=== PATIENT | female | born 1955 | race African-American/Black ===

== ENCOUNTER 2024-09-19 09:23 | Inpatient (IN) | payer MEDICARE, OTHER ==
[~2024-09-19] VITALS: Ht 160 cm; Wt 104.4 kg
[2024-09-19 08:53] VITALS: PULSE 74; RESP 19; RESP 20; O2SAT 98
[~2024-09-19 09:23] MED LIST: BUSP10TA23 PO; CARI-493 PO; GABA-1181 PO; INSLAN SQ; IPRA4AER IH; LORA1TAB25 PO; PERCT PO; RANO500T27 PO; ROSU10TA72 PO; TRAZ-257 PO; ZOLP-280 PO; docusate sodium PO; lasix PO; metformin PO
[2024-09-19 11:06] LABS: BASOPHILS % (AUTO) 0.6 % (0.0-2.0); EOSINOPHILS % (AUTO) 2.9 % (1.0-6.0); HEMATOCRIT 43.9 % (36-46); HEMOGLOBIN 13.9 g/dL (12.0-16.0); LYMPHOCYTES # (AUTO) 1.4 K/uL (1.0-4.8); MEAN CORPUSCULAR HEMOGLOBIN 27.6 pg (26.0-34.0); MEAN CORPUSCULAR HGB CONC 31.7 G/dL (31.0-37.0); MEAN CORPUSCULAR VOLUME 87 fL (80-100); MONOCYTES # (AUTO) 2.1 K/uL (0.1-1.0); MONOCYTES % (AUTO) 13.4 % (2.0-9.0); NEUTROPHILS # (AUTO) 11.8 K/uL (1.8-7.7); NEUTROPHILS % (AUTO) 74.1 % (40.0-70.0); PLATELET COUNT (AUTO) 318 K/uL (150-450); RED BLOOD CELL COUNT(AUTO) 5.05 MIL/uL (4.00-5.20); RED CELL DISTRIBUTION WIDTH 13.4 % (11.5-14.5); WHITE BLOOD COUNT (AUTO) 15.9 K/uL (4.5-11.0)
[2024-09-19 11:12] LABS: ANION GAP 0 mmol/L (8-16); CALCIUM, TOTAL 8.6 mg/dL (8.8-10.5); CARBON DIOXIDE 39 mmol/L (22-29); CHLORIDE 99 mmol/L (98-107); CREATININE 0.53 mg/dL (0.60-1.30); GLOMERULAR FILTR. RATE CALC > 60 mL/min (>60); GLUCOSE,RANDOM 88 mg/dL (70-110); POTASSIUM 4.3 mmol/L (3.5-5.1); SODIUM SERUM 138 mmol/L (136-145); UREA NITROGEN, BLOOD 15 mg/dL (7-18)
[2024-09-19 11:17] LABS: PROTHROMBIN TIME 13.5 SEC (9.4-11.6)
[2024-09-19 11:21] LABS: CREATINE KINASE, TOTAL ONLY 210 U/L (26-192)
[2024-09-19 11:22] LABS: TROPONIN I-HIGH SENSITIVITY 211 ng/L (<51)
[2024-09-19] MEDS: NITROGLYCERIN 2% (1 GM=INCH) OINTMENT PACKET TP ONE (11:27)
[2024-09-19] MEDS: FUROSEMIDE 20 MG/2 ML VIAL IVP ONE ×2 (11:27→22:50)
[2024-09-19] MEDS: MethylPREDNISolone SOD SUCC 125 MG/2 ML VIAL IVP ONE (11:27)
[2024-09-19 11:28] LABS: B-TYPE NATRIURETIC PEPTIDE 229 pg/mL (0-100)
[2024-09-19] MEDS ORDERED: METH-659 PO (11:52)
[2024-09-19] MEDS ORDERED: OXYC20TA41 PO (11:52)
[2024-09-19] MEDS ORDERED: OXYC40TA50 PO (11:52)
[2024-09-19] MEDS ORDERED: ACETAMINOPHEN 325 MG TABLET PO PRN (12:00)
[2024-09-19] MEDS: AZITHROMYCIN 500 MG/NS 250 ML IV ONE (12:08)
[2024-09-19] MEDS ORDERED: OxyCODONE HCL 10 MG ER TABLET PO ONE ×2 (12:15)
[2024-09-19] MEDS: *CLINICAL-LEVOFLOXACIN IVPB DOSING CLINICAL ONE (12:43)
[2024-09-19] MEDS: METHOCARBAMOL 500 MG TABLET PO ONE (12:49)
[2024-09-19] MEDS: OxyCODONE HCL 10 MG IR TABLET PO ONE (12:50)
[2024-09-19 13:00] LABS: APPEARANCE,URINE CLEAR (CLEAR); BILIRUBIN,URINE NEGATIVE (NEGATIVE); COLOR,URINE LIGHT YELLOW (YELLOW); GLUCOSE, URINE (UA) NEGATIVE (NEGATIVE); KETONES,URINE NEGATIVE (NEGATIVE); LEUKOCYTE ESTERASE ,URINE TRACE (NEGATIVE); NITRATE,URINE NEGATIVE (NEGATIVE); OCCULT BLOOD,URINE NEGATIVE (NEGATIVE); PH,URINE 6.5 (5.0-8.0); PROTEIN,URINE 30-70 mg/dL (NEGATIVE); SPECIFIC GRAVITIY, URINE 1.012 (1.003-1.030); UROBILINOGEN,URINE <=1.0 mg/dL (<=1.0)
[2024-09-19 13:24] LABS: RBC,URINE None Seen /HPF (0-2)
[2024-09-19 13:25] LABS: BACTERIA,URINE None Seen /HPF (None Seen); SQUAMOUS EPITHELIAL CELL,UR Few /LPF (None Seen); WBC,URINE 0-2 /HPF (0-5)
[2024-09-19] MEDS: LEVOFLOXACIN 750 MG/D5% WATER 150 ML IV ONE (13:41)
[2024-09-19 16:40] LABS: TROPONIN I-HIGH SENSITIVITY 151 ng/L (<51)
[2024-09-19 17:10] VITALS: BP 139/72; PULSE 82; RESP 23; TEMP 98.5; O2SAT 97
[2024-09-19] MEDS: MethylPREDNISolone SOD SUCC 125 MG/2 ML VIAL IVP SCH (17:55)
[2024-09-19] MEDS: HEPARIN SODIUM,PORCINE 5,000 UNITS/ML VIAL SQ SCH (17:58)
[2024-09-19] MEDS ORDERED: DEXTROSE 50%-WATER 25 GM/50 ML SYRINGE IVP PRN (18:30)
[2024-09-19] MEDS: INSULIN LISPRO 100 UNITS/ML SQ PRN (19:48)
[2024-09-19] MEDS ORDERED: 0.9% SODIUM CHLORIDE 5 ML NEB SOLUTION NEB ONE (20:22)
[2024-09-19 20:30] VITALS: PULSE 72; RESP 22; O2SAT 98
[2024-09-19] MEDS: ALBUTEROL SULFATE 2.5 MG/0.5 ML NEB SOLUTION NEB PRN (20:42)
[2024-09-19 20:45] VITALS: PULSE 78; RESP 22; O2SAT 99
[2024-09-19] MEDS: DOCUSATE SODIUM 100 MG CAPSULE PO SCH (20:49)
[2024-09-19] MEDS: OxyCODONE HCL/ACETAMINOPHEN 5-325 MG TABLET PO PRN (20:49)
[2024-09-19] MEDS: INSULIN GLARGINE,HUM.REC.ANLOG 100 UNITS/ML SQ SCH (20:54)
[2024-09-19 20:59] VITALS: BP 185/97; PULSE 81; RESP 20; TEMP 97.4; O2SAT 95
[2024-09-19] MEDS ORDERED: LISI-894 PO (21:18)
[2024-09-19] MEDS ORDERED: GABA-1181 PO (21:18)
[2024-09-19] MEDS ORDERED: CARV25TA32 PO (21:18)
[2024-09-19 21:26] VITALS: BP 155/62; PULSE 79; RESP 19; O2SAT 97
[2024-09-19] MEDS ORDERED: MELA10TA20 PO (21:40)
[2024-09-19] MEDS ORDERED: TRAZ-252 PO (21:40)
[2024-09-19] MEDS ORDERED: FAMO20 PO (21:40)
[2024-09-19] MEDS ORDERED: LIDO1ADH83 TP (21:40)
[2024-09-19 21:55] LABS: GLUCOMETER DEV NAME(LOC) 5S.2D; GLUCOSE,POINT OF CARE 237 MG/DL (70-110)
[2024-09-19 21:56] LABS: GLUCOMETER DEV NAME(LOC) 5S.2D; GLUCOSE,POINT OF CARE 239 MG/DL (70-110)
[2024-09-19 23:53] LABS: LACTIC ACID 1.5 mmol/L (0.4-2.0)
[2024-09-20] VITALS (13 sets, daily range): BP systolic 135–195; BP diastolic 57–106; PULSE 79–100; RESP 18–24; TEMP 97.1–98.2; O2SAT 93–100
[2024-09-20 00:02] LABS: TROPONIN I-HIGH SENSITIVITY 122 ng/L (<51)
[2024-09-20] MEDS: MORPHINE SULFATE 2 MG/ML SYRINGE IVP ONE (01:41)
[2024-09-20] MEDS ORDERED: NALOXONE HCL 1 MG/ML 2 ML SYRINGE IVP PRN (03:45)
[2024-09-20] MEDS ORDERED: 0.9% SODIUM CHLORIDE 5 ML NEB SOLUTION NEB ONE (04:28)
[2024-09-20 07:30] LABS: GLUCOMETER DEV NAME(LOC) 5S.2D; GLUCOSE,POINT OF CARE 291 MG/DL (70-110)
[2024-09-20] MEDS: FAMOTIDINE 20 MG TABLET PO SCH (08:35)
[2024-09-20 09:30] LABS: GLUCOMETER DEV NAME(LOC) 5S.2D; GLUCOSE,POINT OF CARE 275 MG/DL (70-110)
[2024-09-20] MEDS: OxyCODONE HCL/ACETAMINOPHEN 5-325 MG TABLET PO PRN (10:26)
[2024-09-20] MEDS: AZITHROMYCIN 500 MG/NS 250 ML IV SCH (11:36)
[2024-09-20 11:40] LABS: GLUCOMETER DEV NAME(LOC) 5S.2D; GLUCOSE,POINT OF CARE 312 MG/DL (70-110)
[2024-09-20 12:45] LABS: GLUCOMETER DEV NAME(LOC) 5S.2D; GLUCOSE,POINT OF CARE 316 MG/DL (70-110)
[2024-09-20] MEDS: LEVOFLOXACIN 750 MG/D5% WATER 150 ML IV SCH (14:31)
[2024-09-20 16:53] LABS: LACTIC ACID 2.4 mmol/L (0.4-2.0)
[2024-09-20] MEDS: MethylPREDNISolone SOD SUCC 125 MG/2 ML VIAL IVP SCH (17:36)
[2024-09-20 19:56] LABS: GLUCOMETER DEV NAME(LOC) 5S.2D; GLUCOSE,POINT OF CARE 243 MG/DL (70-110)
[2024-09-20 21:45] LABS: GLUCOMETER DEV NAME(LOC) 5N.2C; GLUCOSE,POINT OF CARE 327 MG/DL (70-110)
[2024-09-21] VITALS (12 sets, daily range): BP systolic 105–204; BP diastolic 62–117; PULSE 98–166; RESP 18–22; TEMP 97.3–98.2; O2SAT 93–98
[2024-09-21] MEDS ORDERED: 0.9% SODIUM CHLORIDE 5 ML NEB SOLUTION NEB ONE (02:47)
[2024-09-21 06:31] LABS: GLUCOMETER DEV NAME(LOC) 5N.2C; GLUCOSE,POINT OF CARE 311 MG/DL (70-110)
[2024-09-21] MEDS: AmLODIPine BESYLATE 5 MG TABLET PO SCH (06:53)
[2024-09-21 08:11] LABS: GLUCOMETER DEV NAME(LOC) 5N.2C; GLUCOSE,POINT OF CARE 307 MG/DL (70-110)
[2024-09-21] MEDS: ATORVASTATIN CALCIUM 20 MG TABLET PO SCH (10:10)
[2024-09-21] MEDS: BISACODYL 10 MG RECTAL RECTAL SUPPOSITORY PR PRN (11:31)
[2024-09-21 17:15] LABS: GLUCOMETER DEV NAME(LOC) 5N.2C; GLUCOSE,POINT OF CARE 292 MG/DL (70-110)
[2024-09-21 17:30] LABS: GLUCOMETER DEV NAME(LOC) 5N.2C; GLUCOSE,POINT OF CARE 322 MG/DL (70-110)
[2024-09-21] MEDS: MethylPREDNISolone SOD SUCC 40 MG/ML VIAL IVP SCH (17:44)
[2024-09-21] MEDS ORDERED: SODIUM CHLORIDE 3% 15 ML NEB SOLUTION NEB ONE (23:06)
[2024-09-22] VITALS (8 sets, daily range): BP systolic 130–185; BP diastolic 69–111; PULSE 93–113; RESP 19–20; TEMP 97.5–98.5; O2SAT 94–100
[2024-09-22] MEDS: ONDANSETRON HCL 4 MG/2 ML VIAL IVP PRN (05:15)
[2024-09-22] MEDS: LOSARTAN POTASSIUM 25 MG TABLET PO SCH (05:18)
[2024-09-22 06:46] LABS: BASOPHILS % (AUTO) 0.3 % (0.0-2.0); EOSINOPHILS % (AUTO) 0.1 % (1.0-6.0); HEMATOCRIT 53.4 % (36-46); LYMPHOCYTES # (AUTO) 2.2 K/uL (1.0-4.8); LYMPHOCYTES % (AUTO) 6.1 % (22.0-44.0); MEAN CORPUSCULAR HEMOGLOBIN 27.5 pg (26.0-34.0); MEAN CORPUSCULAR HGB CONC 31.8 G/dL (31.0-37.0); MEAN CORPUSCULAR VOLUME 87 fL (80-100); MONOCYTES # (AUTO) 2.2 K/uL (0.1-1.0); MONOCYTES % (AUTO) 5.9 % (2.0-9.0); NEUTROPHILS # (AUTO) 32.2 K/uL (1.8-7.7); PLATELET COUNT (AUTO) 482 K/uL (150-450); RED BLOOD CELL COUNT(AUTO) 6.18 MIL/uL (4.00-5.20); RED CELL DISTRIBUTION WIDTH 12.8 % (11.5-14.5)
[2024-09-22 06:58] LABS: NEUTROPHILS % (AUTO) 87.6 % (40.0-70.0)
[2024-09-22 07:00] LABS: WHITE BLOOD COUNT (AUTO) 36.7 K/uL (4.5-11.0)
[2024-09-22 07:01] LABS: ANION GAP 3 mmol/L (8-16); CALCIUM, TOTAL 8.4 mg/dL (8.8-10.5); CARBON DIOXIDE 35 mmol/L (22-29); CHLORIDE 96 mmol/L (98-107); GLOMERULAR FILTR. RATE CALC > 60 mL/min (>60); GLUCOSE,RANDOM 218 mg/dL (70-110); POTASSIUM 3.9 mmol/L (3.5-5.1); SODIUM SERUM 134 mmol/L (136-145); UREA NITROGEN, BLOOD 22 mg/dL (7-18)
[2024-09-22] MEDS ORDERED: SODIUM CHLORIDE 3% 15 ML NEB SOLUTION NEB ONE ×3 (07:48→16:20)
[2024-09-22 08:06] LABS: GLUCOMETER DEV NAME(LOC) 5N.2C; GLUCOSE,POINT OF CARE 221 MG/DL (70-110)
[2024-09-22 08:06] LABS: GLUCOMETER DEV NAME(LOC) 5N.2C; GLUCOSE,POINT OF CARE 315 MG/DL (70-110)
[2024-09-22] MEDS ORDERED: 0.9% SODIUM CHLORIDE 15 ML NEB SOLUTION NEB ONE (08:09)
[2024-09-22 12:09] LABS: MTB PCR w/Rif. Resistance-SPUT NOT DETECTED (Not Detectd)
[2024-09-22 12:40] LABS: GLUCOMETER DEV NAME(LOC) 5S.2D; GLUCOSE,POINT OF CARE 276 MG/DL (70-110)
[2024-09-22 13:23] LABS: MTB PCR w/Rif. Resistance-SPUT NOT DETECTED (Not Detectd)
[2024-09-22 17:23] LABS: ABG BASE EXCESS 10.4 mmol/L (-2.0-3.0); ABG CARBOXYHEMOGLOBIN 0.6 % (0.5-1.5); ABG HCO3 32.3 mmol/L (21.0-28.0); ABG METHEMOGLOBIN 0.2 % (0.0-1.5); ABG OXYGEN CONTENT 23.1 mL/dL (15.0-23.0); ABG OXYGEN SATURATION 95.2 % (94.0-98.0); ABG OXYHEMOGLOBIN 94.4 % (94.0-98.0); ABG PCO2 50 mmHg (32.0-45.0); ABG PH 7.459 (7.350-7.450); ABG TOTAL HEMOGLOBIN 17.4 G/dL (12.0-16.0); PO2, ARTERIAL BG 72.5 mmHg (83.0-108.0); SOURCE, BLOOD GAS ARTERIAL; TEMPERATURE, FAHRENHEIT, BG 98.5 FAHREN (96.0-98.6)
[2024-09-22 17:24] LABS: ABG A-A DIFF O2 68.8 mmHg (10-20.0); ALLEN TEST, BLOOD GAS Positive; O2 DEVICE,BLOOD GAS CANNULA (ROOM AIR); SITE, BLOOD GAS LFT RADIAL
[2024-09-22] MEDS: BUMETANIDE 0.25 MG/ML 4 ML VIAL IVP ONE (17:29)
[2024-09-22] MEDS: CARVEDILOL 25 MG TABLET PO SCH (20:42)
[2024-09-22] MEDS: BUMETANIDE 1 MG TABLET PO SCH (20:42)
[2024-09-22] MEDS: INSULIN GLARGINE,HUM.REC.ANLOG 100 UNITS/ML SQ SCH (21:11)
[2024-09-23 05:08] LABS: HIV 1-2 SCREEN 4TH GEN W/RFLX Non Reactive (Non Reactive)
[2024-09-23 05:55] VITALS: BP_SYST 119; BP_SYST 131; BP_DIAS 59; BP_DIAS 68; PULSE 88; PULSE 95; RESP 18; TEMP 98.1; TEMP 98.3; O2SAT 95; O2SAT 96
[2024-09-23 08:52] VITALS: BP 131/89; PULSE 95; RESP 19; TEMP 98.1; O2SAT 100
[2024-09-23] MEDS: LISINOPRIL 20 MG TABLET PO SCH (09:18)
[2024-09-23] MEDS: MethylPREDNISolone SOD SUCC 40 MG/ML VIAL IVP SCH (09:18)
[2024-09-23] MEDS: LOSARTAN POTASSIUM 25 MG TABLET PO SCH (09:18)
[2024-09-23] MEDS: ASPIRIN 81 MG CHEWABLE TABLET PO SCH (09:18)
[2024-09-23 09:37] LABS: BASOPHILS % (AUTO) 0.7 % (0.0-2.0); HEMOGLOBIN 16.4 g/dL (12.0-16.0); LYMPHOCYTES # (AUTO) 2.6 K/uL (1.0-4.8); LYMPHOCYTES % (AUTO) 7.5 % (22.0-44.0); MEAN CORPUSCULAR HEMOGLOBIN 27.4 pg (26.0-34.0); MEAN CORPUSCULAR HGB CONC 32.2 G/dL (31.0-37.0); MEAN CORPUSCULAR VOLUME 85 fL (80-100); MONOCYTES % (AUTO) 5.8 % (2.0-9.0); PLATELET COUNT (AUTO) 444 K/uL (150-450); RED BLOOD CELL COUNT(AUTO) 5.98 MIL/uL (4.00-5.20); RED CELL DISTRIBUTION WIDTH 12.9 % (11.5-14.5)
[2024-09-23 09:47] LABS: ANION GAP -1 mmol/L (8-16); CALCIUM, TOTAL 8.1 mg/dL (8.8-10.5); CARBON DIOXIDE 39 mmol/L (22-29); CHLORIDE 97 mmol/L (98-107); CREATININE 0.57 mg/dL (0.60-1.30); GLOMERULAR FILTR. RATE CALC > 60 mL/min (>60); GLUCOSE,RANDOM 165 mg/dL (70-110); POTASSIUM 3.6 mmol/L (3.5-5.1); SODIUM SERUM 135 mmol/L (136-145); UREA NITROGEN, BLOOD 16 mg/dL (7-18)
[2024-09-23 09:57] LABS: RBC MORPHOLOGY COMMENT NORMAL RBC MORPH; WHITE BLOOD COUNT (AUTO) 34.5 K/uL (4.5-11.0)
[2024-09-23 11:10] VITALS: BP 138/72; PULSE 94; RESP 18; TEMP 97.8; O2SAT 94
[2024-09-23 12:25] LABS: GLUCOMETER DEV NAME(LOC) 5S.2D; GLUCOSE,POINT OF CARE 281 MG/DL (70-110)
[2024-09-23 12:25] LABS: GLUCOMETER DEV NAME(LOC) 5S.2D; GLUCOSE,POINT OF CARE 300 MG/DL (70-110)
[2024-09-23 12:26] LABS: GLUCOMETER DEV NAME(LOC) 5S.2D; GLUCOSE,POINT OF CARE 251 MG/DL (70-110)
[2024-09-23 12:26] LABS: GLUCOMETER DEV NAME(LOC) 5S.2D; GLUCOSE,POINT OF CARE 166 MG/DL (70-110)
[2024-09-23 14:15] LABS: LACTIC ACID 1.9 mmol/L (0.4-2.0)
[2024-09-23 16:27] VITALS: BP 130/50; PULSE 96; RESP 17; TEMP 97.5; O2SAT 99
[2024-09-23 18:31] LABS: GLUCOMETER DEV NAME(LOC) 5S.2D; GLUCOSE,POINT OF CARE 192 MG/DL (70-110)
[2024-09-23 19:59] VITALS: BP 157/91; PULSE 101; RESP 19; TEMP 98; O2SAT 93
[2024-09-23 23:15] LABS: GLUCOMETER DEV NAME(LOC) 5S.2D; GLUCOSE,POINT OF CARE 298 MG/DL (70-110)
[2024-09-24] VITALS (7 sets, daily range): BP systolic 127–149; BP diastolic 68–86; PULSE 84–97; RESP 18–20; TEMP 97.1–98.2; O2SAT 93–97
[2024-09-24] MEDS ORDERED: 0.9% SODIUM CHLORIDE 5 ML NEB SOLUTION NEB ONE (00:28)
[2024-09-24] MEDS ORDERED: IOHEXOL 350 MG/ML 100 ML VIAL ONE (00:35)
[2024-09-24 06:41] LABS: GLUCOMETER DEV NAME(LOC) 5S.2D; GLUCOSE,POINT OF CARE 279 MG/DL (70-110)
[2024-09-24] MEDS: METOCLOPRAMIDE HCL 5 MG/ML 2 ML VIAL IVP ONE (10:10)
[2024-09-24 19:10] LABS: GLUCOMETER DEV NAME(LOC) 5S.2D; GLUCOSE,POINT OF CARE 224 MG/DL (70-110)
[2024-09-24 19:10] LABS: GLUCOMETER DEV NAME(LOC) 5S.2D; GLUCOSE,POINT OF CARE 244 MG/DL (70-110)
[2024-09-24] MEDS: PANTOPRAZOLE SODIUM 40 MG/VIAL IVP SCH (21:18)
[2024-09-24 22:30] LABS: GLUCOMETER DEV NAME(LOC) 5S.2D; GLUCOSE,POINT OF CARE 223 MG/DL (70-110)
[2024-09-25] VITALS: BP 133/55; PULSE 85; RESP 16; TEMP 97.9; O2SAT 94
[2024-09-25 04:00] VITALS: BP 132/54; PULSE 90; RESP 18; TEMP 97.7; O2SAT 93
[2024-09-25 05:41] LABS: GLUCOMETER DEV NAME(LOC) 5S.2D; GLUCOSE,POINT OF CARE 285 MG/DL (70-110)
[2024-09-25 06:31] LABS: HEMATOCRIT 50.6 % (36-46); HEMOGLOBIN 16.3 g/dL (12.0-16.0); MEAN CORPUSCULAR HEMOGLOBIN 27.6 pg (26.0-34.0); MEAN CORPUSCULAR HGB CONC 32.1 G/dL (31.0-37.0); MEAN CORPUSCULAR VOLUME 86 fL (80-100); PLATELET COUNT (AUTO) 450 K/uL (150-450); RED BLOOD CELL COUNT(AUTO) 5.88 MIL/uL (4.00-5.20); RED CELL DISTRIBUTION WIDTH 12.9 % (11.5-14.5)
[2024-09-25 06:33] LABS: ANION GAP 2 mmol/L (8-16); CALCIUM, TOTAL 8.5 mg/dL (8.8-10.5); CARBON DIOXIDE 37 mmol/L (22-29); CHLORIDE 98 mmol/L (98-107); CREATININE 0.79 mg/dL (0.60-1.30); GLOMERULAR FILTR. RATE CALC > 60 mL/min (>60); GLUCOSE,RANDOM 276 mg/dL (70-110); POTASSIUM 3.7 mmol/L (3.5-5.1); SODIUM SERUM 137 mmol/L (136-145); UREA NITROGEN, BLOOD 16 mg/dL (7-18)
[2024-09-25 06:43] LABS: WHITE BLOOD COUNT (AUTO) 34.7 K/uL (4.5-11.0)
[2024-09-25 08:22] LABS: BAND NEUTROPHILS % (MANUAL) 5 % (0-5); LYMPHOCYTES % (MANUAL) 24 % (22-44); MONOCYTES % (MANUAL) 7 % (2-9); SEGMENTED NEUTROPHILS % 64 % (40-70); TOTAL CELLS COUNTED 100
[2024-09-25 08:23] LABS: RBC MORPHOLOGY COMMENT NORMAL RBC MORPH
[2024-09-25 08:52] VITALS: BP 143/78; PULSE 68; RESP 17; TEMP 97.7; O2SAT 98
[2024-09-25 12:22] VITALS: BP 143/32; PULSE 88; RESP 17; TEMP 98.3; O2SAT 95
[2024-09-25] MEDS: MetroNIDAZOLE 500 MG TABLET PO SCH (16:08)
[2024-09-25 20:00] LABS: GLUCOMETER DEV NAME(LOC) 5S.2D; GLUCOSE,POINT OF CARE 270 MG/DL (70-110)
[2024-09-25 20:00] LABS: GLUCOMETER DEV NAME(LOC) 5S.2D; GLUCOSE,POINT OF CARE 318 MG/DL (70-110)
[2024-09-26 00:26] VITALS: BP 141/77; PULSE 93; RESP 19; TEMP 97.9; O2SAT 97
[2024-09-26 00:31] LABS: GLUCOMETER DEV NAME(LOC) 5S.2D; GLUCOSE,POINT OF CARE 338 MG/DL (70-110)
[2024-09-26 05:10] VITALS: BP 156/77; PULSE 90; RESP 18; TEMP 97.8; O2SAT 100
[2024-09-26 05:30] VITALS: BP 144/74; PULSE 80; RESP 18; O2SAT 97
[2024-09-26 05:49] LABS: HEMATOCRIT 51.3 % (36-46); HEMOGLOBIN 16.2 g/dL (12.0-16.0); MEAN CORPUSCULAR HEMOGLOBIN 26.9 pg (26.0-34.0); MEAN CORPUSCULAR HGB CONC 31.6 G/dL (31.0-37.0); MEAN CORPUSCULAR VOLUME 85 fL (80-100); PLATELET COUNT (AUTO) 486 K/uL (150-450); RED BLOOD CELL COUNT(AUTO) 6.03 MIL/uL (4.00-5.20); RED CELL DISTRIBUTION WIDTH 13.1 % (11.5-14.5)
[2024-09-26 06:16] LABS: ANION GAP 3 mmol/L (8-16); CALCIUM, TOTAL 8.3 mg/dL (8.8-10.5); CARBON DIOXIDE 36 mmol/L (22-29); CHLORIDE 96 mmol/L (98-107); CREATININE 0.74 mg/dL (0.60-1.30); GLOMERULAR FILTR. RATE CALC > 60 mL/min (>60); GLUCOSE,RANDOM 312 mg/dL (70-110); POTASSIUM 3.5 mmol/L (3.5-5.1); SODIUM SERUM 135 mmol/L (136-145); TROPONIN I-HIGH SENSITIVITY 29 ng/L (<51); UREA NITROGEN, BLOOD 17 mg/dL (7-18)
[2024-09-26 06:20] LABS: WHITE BLOOD COUNT (AUTO) 44.4 K/uL (4.5-11.0)
[2024-09-26 07:00] LABS: GLUCOMETER DEV NAME(LOC) 5S.2D; GLUCOSE,POINT OF CARE 274 MG/DL (70-110)
[2024-09-26 08:00] VITALS: BP 151/77; PULSE 100; RESP 18; TEMP 98.5; O2SAT 95
[2024-09-26 08:15] LABS: BAND NEUTROPHILS % (MANUAL) 3 % (0-5); LYMPHOCYTES % (MANUAL) 27 % (22-44); MONOCYTES % (MANUAL) 4 % (2-9); RBC MORPHOLOGY COMMENT NORMAL RBC MORPH; SEGMENTED NEUTROPHILS % 66 % (40-70); TOTAL CELLS COUNTED 100
[2024-09-26 12:00] VITALS: BP 141/77; PULSE 95; RESP 18; TEMP 98.3; O2SAT 97
[2024-09-26 14:58] LABS: ALBUMIN 2.6 g/dL (3.4-5.0); BILIRUBIN,DIRECT 0.2 mg/dL (0.00-0.20); BILIRUBIN,TOTAL 0.5 mg/dL (0.1-1.0); TOTAL PROTEIN, SERUM 6.7 g/dL (6.4-8.2)
[2024-09-26 15:55] LABS: GLUCOMETER DEV NAME(LOC) 5S.2D; GLUCOSE,POINT OF CARE 226 MG/DL (70-110)
[2024-09-26 15:55] LABS: GLUCOMETER DEV NAME(LOC) 5S.2D; GLUCOSE,POINT OF CARE 280 MG/DL (70-110)
[2024-09-26 16:00] VITALS: BP 155/82; PULSE 103; RESP 18; TEMP 98; O2SAT 99
[2024-09-26] MEDS: ZOLPIDEM TARTRATE 5 MG TABLET PO PRN (23:01)
[2024-09-27] VITALS: BP 134/82; PULSE 94; RESP 20; TEMP 97.7; O2SAT 95
[2024-09-27 04:00] VITALS: BP 138/56; PULSE 94; RESP 17; TEMP 97.8; O2SAT 90
[2024-09-27 08:25] VITALS: BP 142/80; PULSE 95; RESP 18; TEMP 98; O2SAT 96
[2024-09-27 08:33] LABS: INFLUENZA A-RTPCR,COMBO NEGATIVE (NEGATIVE); INFLUENZA B-RTPCR,COMBO NEGATIVE (NEGATIVE); SARS COVID19 RTPCR, COMBO NEGATIVE (NEGATIVE)
[2024-09-27 08:36] LABS: RESPIRATORY SYNCYTIAL VRS-PCR POSITIVE (NEGATIVE)
[2024-09-27] MEDS: PredniSONE 20 MG TABLET PO SCH (08:39)
[2024-09-27] MEDS: MORPHINE SULFATE 2 MG/ML SYRINGE IVP ONE ×2 (10:06→17:52)
[2024-09-27 11:26] LABS: GLUCOMETER DEV NAME(LOC) 5S.2D; GLUCOSE,POINT OF CARE 353 MG/DL (70-110)
[2024-09-27 11:26] LABS: GLUCOMETER DEV NAME(LOC) 5S.2D; GLUCOSE,POINT OF CARE 264 MG/DL (70-110)
[2024-09-27 11:26] LABS: GLUCOMETER DEV NAME(LOC) 5S.2D; GLUCOSE,POINT OF CARE 283 MG/DL (70-110)
[2024-09-27 12:00] VITALS: BP 131/64; PULSE 81; RESP 17; TEMP 97.9; O2SAT 95
[2024-09-27] MEDS: MORPHINE SULFATE 2 MG/ML SYRINGE IVP PRN (12:22)
[2024-09-27 12:23] LABS: BASOPHILS % (AUTO) 1.3 % (0.0-2.0); EOSINOPHILS % (AUTO) 2.4 % (1.0-6.0); HEMATOCRIT 48.3 % (36-46); HEMOGLOBIN 15.5 g/dL (12.0-16.0); LYMPHOCYTES # (AUTO) 2.2 K/uL (1.0-4.8); LYMPHOCYTES % (AUTO) 5.5 % (22.0-44.0); MEAN CORPUSCULAR HEMOGLOBIN 27.4 pg (26.0-34.0); MEAN CORPUSCULAR VOLUME 86 fL (80-100); MONOCYTES % (AUTO) 5.1 % (2.0-9.0); NEUTROPHILS # (AUTO) 33.6 K/uL (1.8-7.7); PLATELET COUNT (AUTO) 486 K/uL (150-450); RED BLOOD CELL COUNT(AUTO) 5.65 MIL/uL (4.00-5.20)
[2024-09-27 12:26] LABS: ANION GAP 3 mmol/L (8-16); CALCIUM, TOTAL 7.9 mg/dL (8.8-10.5); CARBON DIOXIDE 36 mmol/L (22-29); CHLORIDE 101 mmol/L (98-107); CREATININE 0.75 mg/dL (0.60-1.30); GLOMERULAR FILTR. RATE CALC > 60 mL/min (>60); GLUCOSE,RANDOM 340 mg/dL (70-110); POTASSIUM 3.5 mmol/L (3.5-5.1); SODIUM SERUM 140 mmol/L (136-145); UREA NITROGEN, BLOOD 18 mg/dL (7-18)
[2024-09-27 12:47] LABS: NEUTROPHILS % (AUTO) 85.7 % (40.0-70.0); WHITE BLOOD COUNT (AUTO) 39.3 K/uL (4.5-11.0)
[2024-09-27 15:07] LABS: ANTI-PROTEINASE 3 (PR3) <0.2 units (0.0-0.9)
[2024-09-27 16:07] LABS: ANTI-SCLERODERMA 70 <0.2 AI (0.0-0.9)
[2024-09-27 16:10] VITALS: BP 137/64; PULSE 74; RESP 17; TEMP 98; O2SAT 95
[2024-09-27 19:06] LABS: ATYPICAL P-ANCA AB <1:20 titer (Neg:<1:20); CYTOPLASMIC (C-ANCA) AB, IGG <1:20 titer (Neg:<1:20)
[2024-09-27 20:06] LABS: GLUCOMETER DEV NAME(LOC) 5S.2D; GLUCOSE,POINT OF CARE 353 MG/DL (70-110)
[2024-09-27 20:06] LABS: GLUCOMETER DEV NAME(LOC) 5S.2D; GLUCOSE,POINT OF CARE 341 MG/DL (70-110)
[2024-09-27] MEDS: BENZOCAINE/MENTHOL [CEPACOL] LOZENGE PO PRN (21:14)
[2024-09-27 22:41] LABS: GLUCOMETER DEV NAME(LOC) 5S.2D; GLUCOSE,POINT OF CARE 238 MG/DL (70-110)
[2024-09-28] VITALS (9 sets, daily range): BP systolic 101–150; BP diastolic 66–83; PULSE 77–110; RESP 18–28; TEMP 97.7–98.8; O2SAT 93–100
[2024-09-28 01:06] LABS: QUANTIFERON+,Mitogen Value 0.04 IU/mL; QUANTIFERON, TB GOLD PLUS Indeterminate (Negative)
[2024-09-28 06:55] LABS: GLUCOMETER DEV NAME(LOC) 5S.2D; GLUCOSE,POINT OF CARE 206 MG/DL (70-110)
[2024-09-28 07:24] LABS: HEMATOCRIT 39.9 % (36-46); HEMOGLOBIN 12.8 g/dL (12.0-16.0); MEAN CORPUSCULAR HEMOGLOBIN 27.5 pg (26.0-34.0); MEAN CORPUSCULAR VOLUME 86 fL (80-100); PLATELET COUNT (AUTO) 382 K/uL (150-450); RED BLOOD CELL COUNT(AUTO) 4.64 MIL/uL (4.00-5.20); RED CELL DISTRIBUTION WIDTH 13.2 % (11.5-14.5)
[2024-09-28 07:43] LABS: WHITE BLOOD COUNT (AUTO) 37.1 K/uL (4.5-11.0)
[2024-09-28 07:45] LABS: ANION GAP 2 mmol/L (8-16); CALCIUM, TOTAL 7.6 mg/dL (8.8-10.5); CARBON DIOXIDE 35 mmol/L (22-29); CHLORIDE 103 mmol/L (98-107); CREATININE 0.76 mg/dL (0.60-1.30); GLOMERULAR FILTR. RATE CALC > 60 mL/min (>60); GLUCOSE,RANDOM 173 mg/dL (70-110); SODIUM SERUM 140 mmol/L (136-145); UREA NITROGEN, BLOOD 17 mg/dL (7-18)
[2024-09-28 08:00] LABS: POTASSIUM 2.7 mmol/L (3.5-5.1)
[2024-09-28] MEDS ORDERED: POTASSIUM CHLORIDE 20 MEQ ER TABLET PO PRN (10:45)
[2024-09-28] MEDS ORDERED: SODIUM CHLORIDE 0.9% 500 ML IV ONE (11:05)
[2024-09-28] MEDS: POTASSIUM CHL 10 MEQ/WATER 50 ML IV PRN (11:13)
[2024-09-28 11:17] LABS: BAND NEUTROPHILS % (MANUAL) 4 % (0-5); BASOPHILS % (MANUAL) 1 % (0-2); LYMPHOCYTES % (MANUAL) 11 % (22-44); MONOCYTES % (MANUAL) 1 % (2-9); RBC MORPHOLOGY COMMENT NORMAL RBC MORPH; SEGMENTED NEUTROPHILS % 83 % (40-70); TOTAL CELLS COUNTED 100
[2024-09-28 11:55] LABS: GLUCOMETER DEV NAME(LOC) 5S.2D; GLUCOSE,POINT OF CARE 235 MG/DL (70-110)
[2024-09-28 11:55] LABS: GLUCOMETER DEV NAME(LOC) 5S.2D; GLUCOSE,POINT OF CARE 257 MG/DL (70-110)
[2024-09-28 18:16] LABS: GLUCOMETER DEV NAME(LOC) 5S.2D; GLUCOSE,POINT OF CARE 378 MG/DL (70-110)
[2024-09-28] MEDS ORDERED: 0.9% SODIUM CHLORIDE 5 ML NEB SOLUTION NEB ONE (19:13)
[2024-09-28 22:51] LABS: GLUCOMETER DEV NAME(LOC) 5N.2C; GLUCOSE,POINT OF CARE 237 MG/DL (70-110)
[2024-09-29] VITALS: BP 113/54; PULSE 91; RESP 19; TEMP 97.9; O2SAT 96
[2024-09-29 04:30] VITALS: BP 119/60; PULSE 95; RESP 19; TEMP 97.7; O2SAT 96
[2024-09-29 06:17] LABS: HEMOGLOBIN 15.3 g/dL (12.0-16.0); MEAN CORPUSCULAR HEMOGLOBIN 27.5 pg (26.0-34.0); MEAN CORPUSCULAR HGB CONC 31.9 G/dL (31.0-37.0); MEAN CORPUSCULAR VOLUME 86 fL (80-100); PLATELET COUNT (AUTO) 462 K/uL (150-450); RED BLOOD CELL COUNT(AUTO) 5.56 MIL/uL (4.00-5.20); RED CELL DISTRIBUTION WIDTH 13.2 % (11.5-14.5)
[2024-09-29 06:21] LABS: GLUCOMETER DEV NAME(LOC) 5N.2C; GLUCOSE,POINT OF CARE 216 MG/DL (70-110)
[2024-09-29 06:27] LABS: WHITE BLOOD COUNT (AUTO) 37.6 K/uL (4.5-11.0)
[2024-09-29 06:32] LABS: ANION GAP 3 mmol/L (8-16); CALCIUM, TOTAL 8.3 mg/dL (8.8-10.5); CARBON DIOXIDE 35 mmol/L (22-29); CHLORIDE 104 mmol/L (98-107); CREATININE 0.74 mg/dL (0.60-1.30); GLOMERULAR FILTR. RATE CALC > 60 mL/min (>60); GLUCOSE,RANDOM 217 mg/dL (70-110); POTASSIUM 3.6 mmol/L (3.5-5.1); SODIUM SERUM 142 mmol/L (136-145); UREA NITROGEN, BLOOD 17 mg/dL (7-18)
[2024-09-29 08:10] LABS: BAND NEUTROPHILS % (MANUAL) 1 % (0-5); BASOPHILS % (MANUAL) 3 % (0-2); LYMPHOCYTES % (MANUAL) 11 % (22-44); MONOCYTES % (MANUAL) 3 % (2-9); RBC MORPHOLOGY COMMENT NORMAL RBC MORPH; SEGMENTED NEUTROPHILS % 82 % (40-70); TOTAL CELLS COUNTED 100
[2024-09-29 08:42] VITALS: BP 139/86; PULSE 94; RESP 18; TEMP 97.7; O2SAT 96
[2024-09-29 12:07] LABS: S PNEUMO SOURCE Urine; STREP PNEUMONIAE AG URINE Negative (Negative)
[2024-09-29 12:39] VITALS: BP 109/72; PULSE 90; RESP 18; TEMP 97.6; O2SAT 95
[2024-09-29] MEDS ORDERED: LORazepam 2 MG/ML VIAL IVP ONE (14:30)
[2024-09-29 15:42] VITALS: BP 117/68; PULSE 93; RESP 18; TEMP 98; O2SAT 96
[2024-09-29 17:06] LABS: GLUCOMETER DEV NAME(LOC) 5N.2C; GLUCOSE,POINT OF CARE 189 MG/DL (70-110)
[2024-09-29] MEDS: INSULIN LISPRO 100 UNITS/ML SQ ONE (17:27)
[2024-09-29 17:35] LABS: GLUCOMETER DEV NAME(LOC) 5N.2C; GLUCOSE,POINT OF CARE 408 MG/DL (70-110)
[2024-09-29 19:30] VITALS: BP 101/60; PULSE 102; RESP 19; TEMP 98; O2SAT 97
[2024-09-30] VITALS: BP 117/59; PULSE 104; RESP 17; TEMP 98.2; O2SAT 98
[2024-09-30 04:10] VITALS: BP 120/79; PULSE 90; RESP 16; TEMP 97.5; O2SAT 100
[2024-09-30 07:09] LABS: HEMATOCRIT 49.9 % (36-46); HEMOGLOBIN 15.8 g/dL (12.0-16.0); MEAN CORPUSCULAR HEMOGLOBIN 27.4 pg (26.0-34.0); MEAN CORPUSCULAR HGB CONC 31.6 G/dL (31.0-37.0); MEAN CORPUSCULAR VOLUME 87 fL (80-100); PLATELET COUNT (AUTO) 490 K/uL (150-450); RED BLOOD CELL COUNT(AUTO) 5.76 MIL/uL (4.00-5.20); RED CELL DISTRIBUTION WIDTH 13.4 % (11.5-14.5)
[2024-09-30 07:17] LABS: WHITE BLOOD COUNT (AUTO) 42.4 K/uL (4.5-11.0)
[2024-09-30 07:19] LABS: ALANINE AMINOTRANSFERASE 114 U/L (12-78); ALBUMIN 2.4 g/dL (3.4-5.0); ALKALINE PHOSPHATASE 107 U/L (46-116); ANION GAP 1 mmol/L (8-16); ASPARTATE AMINOTRANSFERASE 73 U/L (15-37); BILIRUBIN,TOTAL 0.5 mg/dL (0.1-1.0); CALCIUM, TOTAL 8.3 mg/dL (8.8-10.5); CARBON DIOXIDE 36 mmol/L (22-29); CHLORIDE 105 mmol/L (98-107); CREATININE 0.75 mg/dL (0.60-1.30); GLOMERULAR FILTR. RATE CALC > 60 mL/min (>60); GLUCOSE,RANDOM 235 mg/dL (70-110); POTASSIUM 4.1 mmol/L (3.5-5.1); SODIUM SERUM 142 mmol/L (136-145); TOTAL PROTEIN, SERUM 6.4 g/dL (6.4-8.2); UREA NITROGEN, BLOOD 19 mg/dL (7-18)
[2024-09-30 07:36] LABS: GLUCOMETER DEV NAME(LOC) 5N.2C; GLUCOSE,POINT OF CARE 226 MG/DL (70-110)
[2024-09-30 07:36] LABS: GLUCOMETER DEV NAME(LOC) 5N.2C; GLUCOSE,POINT OF CARE 301 MG/DL (70-110)
[2024-09-30 08:22] LABS: BAND NEUTROPHILS % (MANUAL) 5 % (0-5); LYMPHOCYTES % (MANUAL) 25 % (22-44); MONOCYTES % (MANUAL) 4 % (2-9); SEGMENTED NEUTROPHILS % 66 % (40-70); TOTAL CELLS COUNTED 100
[2024-09-30 08:23] LABS: RBC MORPHOLOGY COMMENT NORMAL RBC MORPH
[2024-09-30 08:29] VITALS: BP 130/71; PULSE 96; RESP 17; TEMP 97.9; O2SAT 99
[2024-09-30] MEDS: PredniSONE 10 MG TABLET PO SCH (09:01)
[2024-09-30 11:36] LABS: GLUCOMETER DEV NAME(LOC) 5N.2C; GLUCOSE,POINT OF CARE 241 MG/DL (70-110)
[2024-09-30] MEDS: GABAPENTIN 300 MG CAPSULE PO SCH (11:57)
[2024-09-30 12:34] VITALS: BP 107/63; PULSE 84; RESP 18; TEMP 97.7; O2SAT 98
[2024-09-30] MEDS ORDERED: INDIUM IN-111 OXYQUINOLINE/.5MCL ISOTOPE 1 EA INJ INJ ONE (14:55)
[2024-09-30 15:08] VITALS: BP 120/58; PULSE 89; RESP 19; TEMP 97.9; O2SAT 96
[2024-09-30 16:45] LABS: GLUCOMETER DEV NAME(LOC) 5N.2C; GLUCOSE,POINT OF CARE 366 MG/DL (70-110)
[2024-09-30 20:15] VITALS: BP 100/72; PULSE 106; RESP 20; TEMP 97.5; O2SAT 100
[2024-10-01 00:16] VITALS: BP 143/67; PULSE 97; RESP 21; TEMP 97.5; O2SAT 95
[2024-10-01 04:20] VITALS: BP 118/64; PULSE 84; RESP 20; TEMP 97.7; O2SAT 95
[2024-10-01 07:22] VITALS: BP 108/71; PULSE 85; RESP 18; TEMP 97.7; O2SAT 100
[2024-10-01 09:41] LABS: GLUCOMETER DEV NAME(LOC) 5N.2C; GLUCOSE,POINT OF CARE 254 MG/DL (70-110)
[2024-10-01 09:41] LABS: GLUCOMETER DEV NAME(LOC) 5N.2C; GLUCOSE,POINT OF CARE 301 MG/DL (70-110)
[2024-10-01 09:41] LABS: GLUCOMETER DEV NAME(LOC) 5N.2C; GLUCOSE,POINT OF CARE 342 MG/DL (70-110)
[2024-10-01 11:35] VITALS: BP 137/71; PULSE 88; RESP 18; TEMP 97.8; O2SAT 96
[2024-10-01] MEDS: GABAPENTIN 300 MG CAPSULE PO SCH (15:07)
[2024-10-01] MEDS: SERTRALINE HCL 50 MG TABLET PO SCH (15:07)
[2024-10-01 16:41] VITALS: BP 122/78; PULSE 89; RESP 18; TEMP 98; O2SAT 95
[2024-10-01 17:56] LABS: GLUCOMETER DEV NAME(LOC) 5N.2C; GLUCOSE,POINT OF CARE 338 MG/DL (70-110)
[2024-10-01 17:56] LABS: GLUCOMETER DEV NAME(LOC) 5N.2C; GLUCOSE,POINT OF CARE 274 MG/DL (70-110)
[2024-10-01 20:36] VITALS: BP 110/68; PULSE 95; RESP 20; TEMP 97.7; O2SAT 96
[2024-10-01] MEDS: TraZODone HCL 50 MG TABLET PO SCH (21:06)
[2024-10-01] MEDS: MELATONIN 5 MG TABLET PO SCH (21:06)
[2024-10-02 00:06] VITALS: BP 98/66; PULSE 80; RESP 19; TEMP 97.9; O2SAT 95
[2024-10-02 00:51] LABS: GLUCOMETER DEV NAME(LOC) 5N.2C; GLUCOSE,POINT OF CARE 343 MG/DL (70-110)
[2024-10-02 01:08] VITALS: BP 103/64; PULSE 80; RESP 19; TEMP 97.4; O2SAT 92
[2024-10-02 08:41] VITALS: BP 143/66; PULSE 94; RESP 18; TEMP 97.8; O2SAT 95
[2024-10-02 10:33] LABS: BASOPHILS % (AUTO) 0.5 % (0.0-2.0); EOSINOPHILS % (AUTO) 7.7 % (1.0-6.0); HEMATOCRIT 46.3 % (36-46); HEMOGLOBIN 14.6 g/dL (12.0-16.0); LYMPHOCYTES # (AUTO) 2.3 K/uL (1.0-4.8); LYMPHOCYTES % (AUTO) 9.9 % (22.0-44.0); MEAN CORPUSCULAR HEMOGLOBIN 27.3 pg (26.0-34.0); MEAN CORPUSCULAR HGB CONC 31.5 G/dL (31.0-37.0); MEAN CORPUSCULAR VOLUME 87 fL (80-100); MONOCYTES # (AUTO) 1.7 K/uL (0.1-1.0); MONOCYTES % (AUTO) 7.2 % (2.0-9.0); NEUTROPHILS # (AUTO) 17.6 K/uL (1.8-7.7); NEUTROPHILS % (AUTO) 74.7 % (40.0-70.0); PLATELET COUNT (AUTO) 406 K/uL (150-450); RED BLOOD CELL COUNT(AUTO) 5.36 MIL/uL (4.00-5.20); RED CELL DISTRIBUTION WIDTH 13.5 % (11.5-14.5); WHITE BLOOD COUNT (AUTO) 23.6 K/uL (4.5-11.0)
[2024-10-02 10:37] LABS: ALANINE AMINOTRANSFERASE 116 U/L (12-78); ALBUMIN 2.2 g/dL (3.4-5.0); ALKALINE PHOSPHATASE 120 U/L (46-116); ANION GAP 4 mmol/L (8-16); ASPARTATE AMINOTRANSFERASE 78 U/L (15-37); BILIRUBIN,TOTAL 0.5 mg/dL (0.1-1.0); CALCIUM, TOTAL 8.5 mg/dL (8.8-10.5); CARBON DIOXIDE 34 mmol/L (22-29); CHLORIDE 105 mmol/L (98-107); CREATININE 0.72 mg/dL (0.60-1.30); GLOMERULAR FILTR. RATE CALC > 60 mL/min (>60); GLUCOSE,RANDOM 347 mg/dL (70-110); POTASSIUM 4.2 mmol/L (3.5-5.1); SODIUM SERUM 143 mmol/L (136-145); UREA NITROGEN, BLOOD 21 mg/dL (7-18)
[2024-10-02 11:43] VITALS: BP 129/67; PULSE 92; RESP 20; TEMP 97.7; O2SAT 95
[2024-10-02 16:03] VITALS: BP 136/69; PULSE 88; RESP 18; TEMP 98.1; O2SAT 94
[2024-10-02 18:21] LABS: GLUCOMETER DEV NAME(LOC) 5N.2C; GLUCOSE,POINT OF CARE 249 MG/DL (70-110)
[2024-10-02 18:21] LABS: GLUCOMETER DEV NAME(LOC) 5N.2C; GLUCOSE,POINT OF CARE 387 MG/DL (70-110)
[2024-10-02 18:21] LABS: GLUCOMETER DEV NAME(LOC) 5N.2C; GLUCOSE,POINT OF CARE 298 MG/DL (70-110)
[2024-10-02 20:00] VITALS: BP 127/49; PULSE 91; RESP 19; TEMP 97.8; O2SAT 96
[2024-10-02] MEDS: INSULIN GLARGINE,HUM.REC.ANLOG 100 UNITS/ML SQ SCH (21:00)
[2024-10-03] VITALS (7 sets, daily range): BP systolic 105–136; BP diastolic 38–85; PULSE 78–91; RESP 18–21; TEMP 97.5–98.5; O2SAT 94–100
[2024-10-03 01:42] LABS: GLUCOMETER DEV NAME(LOC) 5S.2D; GLUCOSE,POINT OF CARE 353 MG/DL (70-110)
[2024-10-03] MEDS: METOCLOPRAMIDE HCL 5 MG/ML 2 ML VIAL IVP PRN (02:14)
[2024-10-03 06:31] LABS: GLUCOMETER DEV NAME(LOC) 5N.2C; GLUCOSE,POINT OF CARE 167 MG/DL (70-110)
[2024-10-03 07:21] LABS: BASOPHILS % (AUTO) 4.8 % (0.0-2.0); EOSINOPHILS % (AUTO) 8.8 % (1.0-6.0); HEMATOCRIT 43.5 % (36-46); HEMOGLOBIN 13.9 g/dL (12.0-16.0); LYMPHOCYTES # (AUTO) 3.1 K/uL (1.0-4.8); LYMPHOCYTES % (AUTO) 12.6 % (22.0-44.0); MEAN CORPUSCULAR HEMOGLOBIN 27.5 pg (26.0-34.0); MEAN CORPUSCULAR VOLUME 86 fL (80-100); MONOCYTES # (AUTO) 1.7 K/uL (0.1-1.0); MONOCYTES % (AUTO) 6.9 % (2.0-9.0); NEUTROPHILS # (AUTO) 16.4 K/uL (1.8-7.7); NEUTROPHILS % (AUTO) 66.9 % (40.0-70.0); PLATELET COUNT (AUTO) 403 K/uL (150-450); RED BLOOD CELL COUNT(AUTO) 5.06 MIL/uL (4.00-5.20); RED CELL DISTRIBUTION WIDTH 13.3 % (11.5-14.5); WHITE BLOOD COUNT (AUTO) 24.5 K/uL (4.5-11.0)
[2024-10-03 07:27] LABS: ANION GAP 1 mmol/L (8-16); CALCIUM, TOTAL 8.6 mg/dL (8.8-10.5); CARBON DIOXIDE 38 mmol/L (22-29); CHLORIDE 105 mmol/L (98-107); CREATININE 0.65 mg/dL (0.60-1.30); GLOMERULAR FILTR. RATE CALC > 60 mL/min (>60); GLUCOSE,RANDOM 165 mg/dL (70-110); POTASSIUM 3.7 mmol/L (3.5-5.1); SODIUM SERUM 144 mmol/L (136-145); UREA NITROGEN, BLOOD 20 mg/dL (7-18)
[2024-10-03 17:10] LABS: GLUCOMETER DEV NAME(LOC) 5N.2C; GLUCOSE,POINT OF CARE 258 MG/DL (70-110)
[2024-10-03 22:01] LABS: GLUCOMETER DEV NAME(LOC) 5S.2D; GLUCOSE,POINT OF CARE 320 MG/DL (70-110)
[2024-10-03 22:01] LABS: GLUCOMETER DEV NAME(LOC) 5N.2C; GLUCOSE,POINT OF CARE 396 MG/DL (70-110)
[2024-10-04 04:25] VITALS: BP 120/50; PULSE 89; RESP 18; TEMP 97.8; O2SAT 97
[2024-10-04] MEDS: PANTOPRAZOLE SODIUM 40 MG DR TABLET PO SCH (09:06)
[2024-10-04 09:31] LABS: GLUCOMETER DEV NAME(LOC) 6S.1D; GLUCOSE,POINT OF CARE 228 MG/DL (70-110)
[2024-10-04 11:41] LABS: GLUCOMETER DEV NAME(LOC) 6S.2; GLUCOSE,POINT OF CARE 281 MG/DL (70-110)
[2024-10-04 12:47] VITALS: BP 94/51; PULSE 80; RESP 18; TEMP 97.5; O2SAT 97
[2024-10-04 16:07] VITALS: BP 109/72; PULSE 81; RESP 18; TEMP 98.4; O2SAT 98
[2024-10-04] MEDS ORDERED: ASPI-1450 PO (16:26)
[2024-10-04] MEDS ORDERED: BUME1TAB50 PO (16:27)
[2024-10-04] MEDS ORDERED: ATOR20TA65 PO (16:27)
[2024-10-04] MEDS ORDERED: DOCU-385 PO (16:28)
[2024-10-04] MEDS ORDERED: HEPA500018 SQ (16:29)
[2024-10-04] MEDS ORDERED: GABA-1181 PO (16:29)
[2024-10-04] MEDS ORDERED: LOSA-381 PO (16:30)
[2024-10-04] MEDS ORDERED: INSLAN SQ (16:30)
[2024-10-04] MEDS ORDERED: SERT20OR6 PO (16:31)
[2024-10-04] MEDS ORDERED: PANT-31 PO (16:31)
[2024-10-04] MEDS ORDERED: BENZ1LOZ50 PO (16:38)
[2024-10-04] MEDS ORDERED: BISA-151 PO (16:39)
[2024-10-04 18:00] LABS: GLUCOMETER DEV NAME(LOC) 6S.2; GLUCOSE,POINT OF CARE 267 MG/DL (70-110)
[2024-10-04 20:16] LABS: GLUCOMETER DEV NAME(LOC) 6N.1B; GLUCOSE,POINT OF CARE 188 MG/DL (70-110)
== END 2024-10-04 18:48 | DRG 177 ==
LOC: EMS 09:23 → EDH 12:01 → 5S 17:04 → 5N 09-21 20:47 → 4E 10-04 04:31 → 6N 10-04 09:00
PROVIDERS: ADMIT Internal Medicine; ATTEND Internal Medicine
PROC: 5A09357 Assistance with Respiratory Ventilation, Less than 24 Consecutive Hours, Continuous Positive Airway Pressure (ICD-10-PCS; principal; 2024-09-19)
PROC: 05HF33Z Insertion of Infusion Device into Left Cephalic Vein, Percutaneous Approach (ICD-10-PCS; 2024-09-25)
DX: J15.69 Pneumonia due to other Gram-negative bacteria (principal); I50.33 Acute on chronic diastolic (congestive) heart failure; J96.21 Acute and chronic respiratory failure with hypoxia; J44.1 Chronic obstructive pulmonary disease with (acute) exacerbation; J45.901 Unspecified asthma with (acute) exacerbation; G93.40 Encephalopathy, unspecified; F11.20 Opioid dependence, uncomplicated; J44.0 Chronic obstructive pulmonary disease with (acute) lower respiratory infection; R45.851 Suicidal ideations; Z68.41 Body mass index [BMI] 40.0-44.9, adult; I11.0 Hypertensive heart disease with heart failure; E66.01 Morbid (severe) obesity due to excess calories; I27.20 Pulmonary hypertension, unspecified; F41.1 Generalized anxiety disorder; M62.81 Muscle weakness (generalized); G89.4 Chronic pain syndrome; K21.9 Gastro-esophageal reflux disease without esophagitis; E78.5 Hyperlipidemia, unspecified; G47.00 Insomnia, unspecified; M54.50 Low back pain, unspecified; I34.0 Nonrheumatic mitral (valve) insufficiency; T38.0X5A Adverse effect of glucocorticoids and synthetic analogues, initial encounter; K29.80 Duodenitis without bleeding; K52.89 Other specified noninfective gastroenteritis and colitis; E11.9 Type 2 diabetes mellitus without complications; D72.829 Elevated white blood cell count, unspecified; E87.6 Hypokalemia; B97.4 Respiratory syncytial virus as the cause of diseases classified elsewhere; Z78.9 Other specified health status; Z82.49 Family history of ischemic heart disease and other diseases of the circulatory system; Z82.5 Family history of asthma and other chronic lower respiratory diseases; Z83.3 Family history of diabetes mellitus; Z88.0 Allergy status to penicillin; Z90.49 Acquired absence of other specified parts of digestive tract; Z99.3 Dependence on wheelchair; Y92.89 Other specified places as the place of occurrence of the external cause; F32.9 Major depressive disorder, single episode, unspecified
CPT/HCPCS: 0241U; 36245; 36569; 36600; 71045; 71250; 74177; 76937; 78806; 80048; 80053; 80076; 81001; 82550; 82805; 82962; 83516; 83605; 83735; 83880; 84132; 84145; 84484; 85025; 85610; 85730; 86038; 86171; 86225; 86235; 86256; 86480; 87015; 87040; 87070; 87205; 87206; 87305; 87338; 87389; 87420; 87449; 87556; 87899; 93005; 93306; 94640; 94660; 96365; 96368; 96375; 99285; A9547; J0456; J1644; J1815; J1940; J1956; J2270; J2405; J2470; J2765; J2919; J3480; J3490; J7040; 36415-L1; 36415-TC; J7512; J7613; Z7610